=== PATIENT | female | born 1930 | race Caucasian/White ===

== ENCOUNTER 2017-09-05 14:19 | Inpatient (IN) | payer MEDICARE, BC ==
[~2017-09-05] VITALS: Ht 154.9 cm; Wt 59.1 kg
[2017-09-05] MEDS ORDERED: normal saline 1000ml 1,000 ML IV SCH (14:43)
[2017-09-05] MEDS ORDERED: potassium Cl 40MEQ/NS 500ml 500 ML IV PRN ×2 (14:45)
[2017-09-05] MEDS ORDERED: potassium Cl 20 mEq SR tablet PO PRN ×2 (14:45)
[2017-09-05] MEDS ORDERED: mag hydrox/Alum hydrox/simeth 30ml oral suspension PO PRN (14:45)
[2017-09-05] MEDS ORDERED: magnesium 2GM in 50ml NS 50 ML IV PRN (14:45)
[2017-09-05] MEDS ORDERED: HYDROcodone/acetaminophen 10/325mg tab PO PRN (14:45)
[2017-09-05] MEDS ORDERED: HYDROcodone/acetaminophen 5mg/325mg tablet PO PRN (14:45)
[2017-09-05] MEDS ORDERED: magnesium hydroxide 30ml (MOM) UD suspension PO PRN (14:45)
[2017-09-05] MEDS ORDERED: magnesium Cl slow-release 64mg tablet PO PRN (14:45)
[2017-09-05] MEDS ORDERED: acetaminophen 325mg tablet PO PRN ×2 (14:45)
[2017-09-05] MEDS ORDERED: ondansetron/PF 4mg/2ml inj IV PRN (14:45)
[2017-09-05] MEDS ORDERED: magnesium 4gm in 100ml NS 100 ML IV PRN (14:45)
[2017-09-05 16:04] LABS: ALANINE AMINOTRANSFERASE 14 U/L (12-78); ALBUMIN 2.9 G/DL (3.4-5.0); ALBUMIN/GLOBULIN RATIO 0.7 (1.1-1.5); ALKALINE PHOSPHATASE 48 IU/L (46-116); ANION GAP 9 (8-16); ASPARTATE AMINO TRANSFERASE 7 U/L (10-37); BILIRUBIN,TOTAL 0.5 MG/DL (0.1-1.0); BLOOD UREA NITROGEN 22 MG/DL (7-18); BUN/CREATININE RATIO 24.4 (6.6-38.0); CALCIUM 8.5 MG/DL (8.5-10.1); CHLORIDE 118 MMOL/L (99-107); GLUCOSE 104 MG/DL (70-104); MAGNESIUM 2.5 MG/DL (1.5-2.4); PHOSPHORUS 3.5 MG/DL (2.3-4.5); POTASSIUM 3.8 MMOL/L (3.5-5.1); SODIUM 153 MMOL/L (135-145); TOTAL CARBON DIOXIDE 26.4 MMOL/L (24-32); TOTAL PROTEIN 7.2 G/DL (6.4-8.2); eGFR 59 ML/MIN
[2017-09-05 16:23] LABS: BASOPHILS % (AUTO) 0.3 % (0-1); EOSINOPHILS % (AUTO) 0.3 % (0-6); HEMATOCRIT 33.5 % (35.0-45.0); HEMOGLOBIN 11.7 g/dl (12.0-16.0); LYMPHOCYTES # (AUTO) 0.8 X10'3 (1.1-4.8); LYMPHOCYTES % (AUTO) 10.2 % (21-51); MEAN CORPUSCULAR VOLUME 80.1 FL (78-98); MEAN PLATELET VOLUME 8.9 FL (7.4-10.4); MONOCYTES # (AUTO) 0.8 X10'3 (0-0.9); MONOCYTES % (AUTO) 10.8 % (2-12); NEUTROPHILS # (AUTO) 5.8 X10'3 (1.8-7.7); NEUTROPHILS % (AUTO) 78.4 % (42-75); PLATELET COUNT 183 X10'3 (140-440); RED BLOOD COUNT 4.19 X10'6 (4.20-5.60); RED CELL DISTRIBUTION WIDTH 14.4 % (11.5-14.5); WHITE BLOOD COUNT 7.4 X10'3 (4.5-11.0)
[2017-09-05] MEDS: cefTRIAXone 1g/NS 100ml IVPB 100 ML IV SCH (16:26)
[2017-09-05 16:29] LABS: INR 1.1 INR; PARTIAL THROMBOPLASTIN TIME 28 SECONDS (22-32); PROTHROMBIN TIME 11.2 SECONDS (9.0-12.0)
[2017-09-05] MEDS ORDERED: ROBDML PO (16:52)
[2017-09-05] MEDS ORDERED: BISA5TAB10 PO (16:52)
[2017-09-05] MEDS ORDERED: PROP10TA10 PO (16:52)
[2017-09-05] MEDS ORDERED: CETI-102 PO (16:52)
[2017-09-05] MEDS ORDERED: IBUP-1984 PO (16:52)
[2017-09-05] MEDS ORDERED: LORA0.5T PO (16:52)
[2017-09-05] MEDS ORDERED: LOPE2CAP PO (16:52)
[2017-09-05] MEDS ORDERED: AMOX-580 PO (16:52)
[2017-09-05] MEDS ORDERED: BISM-51 PO (16:52)
[2017-09-05] MEDS ORDERED: ACET-1008 PO (16:52)
[2017-09-05] MEDS ORDERED: SENN-161 PO (16:52)
[2017-09-05] MEDS ORDERED: CALC500T11 PO (16:52)
[2017-09-05] MEDS: levoFLOXACIN-Levaquin 250mg/D5 50 ML IV SCH (17:47)
[2017-09-05 20:00] VITALS: BP 116/60
[2017-09-05] MEDS: dextrose 5%-1/2 normal saline 1,000 ML IV SCH (20:24)
[2017-09-05] MEDS ORDERED: LORazepam 0.5 MG tablet PO PRN (20:25)
[2017-09-05] MEDS ORDERED: temazepam 15mg capsule PO PRN (21:00)
[2017-09-05 23:00] VITALS: BP 108/63
[2017-09-06 08:00] VITALS: BP 85/65
[2017-09-06] MEDS: K and/or MAG REPLACEMENT MC SCH (08:00)
[2017-09-06] MEDS: propranolol 10mg tablet PO SCH (08:00)
[2017-09-06 09:00] VITALS: BP 101/51
[2017-09-06] MEDS: cefTRIAXone 1g/NS 100ml IVPB 100 ML IV SCH (09:25)
[2017-09-06 09:30] VITALS: BP 102/57
[2017-09-06] MEDS: cetirizine 10mg tablet PO SCH (09:41)
[2017-09-06] MEDS: enoxaparin 40mg/0.4ml syringe SQ SCH (09:43)
[2017-09-06] MEDS: dextrose 5%-1/2 normal saline 1,000 ML IV SCH ×2 (09:45→21:30)
[2017-09-06] MEDS: levoFLOXACIN-Levaquin 250mg/D5 50 ML IV SCH (10:14)
[2017-09-06 11:00] VITALS: BP 113/59
[2017-09-06 12:06] LABS: BASOPHILS # (AUTO) 0.1 X10'3 (0-0.2); BASOPHILS % (AUTO) 0.8 % (0-1); EOSINOPHILS % (AUTO) 0.4 % (0-6); HEMATOCRIT 32.3 % (35.0-45.0); HEMOGLOBIN 10.9 g/dl (12.0-16.0); LYMPHOCYTES % (AUTO) 14.1 % (21-51); MEAN CORPUSCULAR HEMOGLOBIN 27.1 PG (27.0-31.0); MEAN CORPUSCULAR HGB CONC 33.8 % (33.0-36.5); MEAN CORPUSCULAR VOLUME 80.1 FL (78-98); MEAN PLATELET VOLUME 9.3 FL (7.4-10.4); MONOCYTES # (AUTO) 0.8 X10'3 (0-0.9); MONOCYTES % (AUTO) 11.1 % (2-12); NEUTROPHILS # (AUTO) 5.4 X10'3 (1.8-7.7); NEUTROPHILS % (AUTO) 73.6 % (42-75); PLATELET COUNT 185 X10'3 (140-440); RED BLOOD COUNT 4.03 X10'6 (4.20-5.60); RED CELL DISTRIBUTION WIDTH 14.2 % (11.5-14.5); WHITE BLOOD COUNT 7.4 X10'3 (4.5-11.0)
[2017-09-06 12:21] LABS: ALANINE AMINOTRANSFERASE 9 U/L (12-78); ALBUMIN 2.4 G/DL (3.4-5.0); ALBUMIN/GLOBULIN RATIO 0.6 (1.1-1.5); ALKALINE PHOSPHATASE 40 IU/L (46-116); ANION GAP 6 (8-16); ASPARTATE AMINO TRANSFERASE 9 U/L (10-37); BILIRUBIN,TOTAL 0.3 MG/DL (0.1-1.0); BLOOD UREA NITROGEN 17 MG/DL (7-18); BUN/CREATININE RATIO 21.3 (6.6-38.0); CHLORIDE 119 MMOL/L (99-107); GLUCOSE 129 MG/DL (70-104); POTASSIUM 3.2 MMOL/L (3.5-5.1); SODIUM 150 MMOL/L (135-145); TOTAL CARBON DIOXIDE 25.3 MMOL/L (24-32); TOTAL PROTEIN 6.4 G/DL (6.4-8.2); eGFR 68 ML/MIN
[2017-09-06 20:00] VITALS: BP 112/57
[2017-09-06 23:00] VITALS: BP 103/74
[2017-09-07 06:09] LABS: BASOPHILS % (AUTO) 0.3 % (0-1); EOSINOPHILS # (AUTO) 0.1 X10'3 (0-0.9); EOSINOPHILS % (AUTO) 1.9 % (0-6); HEMATOCRIT 28.8 % (35.0-45.0); HEMOGLOBIN 10.1 g/dl (12.0-16.0); LYMPHOCYTES # (AUTO) 1.2 X10'3 (1.1-4.8); LYMPHOCYTES % (AUTO) 19.9 % (21-51); MEAN CORPUSCULAR HEMOGLOBIN 27.7 PG (27.0-31.0); MEAN CORPUSCULAR HGB CONC 34.9 % (33.0-36.5); MEAN CORPUSCULAR VOLUME 79.2 FL (78-98); MEAN PLATELET VOLUME 8.6 FL (7.4-10.4); MONOCYTES % (AUTO) 16.2 % (2-12); NEUTROPHILS # (AUTO) 3.7 X10'3 (1.8-7.7); NEUTROPHILS % (AUTO) 61.7 % (42-75); PLATELET COUNT 159 X10'3 (140-440); RED BLOOD COUNT 3.64 X10'6 (4.20-5.60); WHITE BLOOD COUNT 6.1 X10'3 (4.5-11.0)
[2017-09-07 06:33] LABS: ALBUMIN 2.2 G/DL (3.4-5.0); ANION GAP 8 (8-16); BLOOD UREA NITROGEN 15 MG/DL (7-18); BUN/CREATININE RATIO 18.8 (6.6-38.0); CALCIUM 7.9 MG/DL (8.5-10.1); CHLORIDE 119 MMOL/L (99-107); GLUCOSE 107 MG/DL (70-104); MAGNESIUM 2.1 MG/DL (1.5-2.4); POTASSIUM 3.6 MMOL/L (3.5-5.1); SODIUM 151 MMOL/L (135-145); TOTAL CARBON DIOXIDE 24.4 MMOL/L (24-32); eGFR 68 ML/MIN
[2017-09-07 07:24] VITALS: BP 116/74
[2017-09-07] MEDS: K and/or MAG REPLACEMENT MC SCH (08:00)
[2017-09-07] MEDS: LACTOBACILLUS RHAMNOSUS GG 15 billion unit sprinkle caps PO SCH (09:31)
[2017-09-07] MEDS: cefTRIAXone 1g/NS 100ml IVPB 100 ML IV SCH (09:32)
[2017-09-07] MEDS: propranolol 10mg tablet PO SCH (09:33)
[2017-09-07] MEDS: cetirizine 10mg tablet PO SCH (09:33)
[2017-09-07] MEDS: enoxaparin 40mg/0.4ml syringe SQ SCH (09:34)
[2017-09-07 11:00] VITALS: BP 119/67
[2017-09-07] MEDS: dextrose 5%-water 1,000 ML IV SCH (11:41)
[2017-09-07] MEDS: levoFLOXACIN 250mg tablet PO SCH (11:42)
[2017-09-07 19:30] VITALS: BP 129/85
[2017-09-08] VITALS: BP 132/80
[2017-09-08] MEDS: dextrose 5%-water 1,000 ML IV SCH ×2 (01:20→08:40)
[2017-09-08 05:51] LABS: BASOPHILS % (AUTO) 0.3 % (0-1); EOSINOPHILS # (AUTO) 0.2 X10'3 (0-0.9); EOSINOPHILS % (AUTO) 2.1 % (0-6); HEMATOCRIT 31.4 % (35.0-45.0); HEMOGLOBIN 10.6 g/dl (12.0-16.0); LYMPHOCYTES # (AUTO) 1.4 X10'3 (1.1-4.8); LYMPHOCYTES % (AUTO) 19.1 % (21-51); MEAN CORPUSCULAR HEMOGLOBIN 27.2 PG (27.0-31.0); MEAN CORPUSCULAR HGB CONC 33.7 % (33.0-36.5); MEAN CORPUSCULAR VOLUME 80.6 FL (78-98); MEAN PLATELET VOLUME 8.5 FL (7.4-10.4); MONOCYTES % (AUTO) 13.7 % (2-12); NEUTROPHILS # (AUTO) 4.6 X10'3 (1.8-7.7); NEUTROPHILS % (AUTO) 64.8 % (42-75); PLATELET COUNT 153 X10'3 (140-440); RED CELL DISTRIBUTION WIDTH 14.9 % (11.5-14.5); WHITE BLOOD COUNT 7.1 X10'3 (4.5-11.0)
[2017-09-08 06:11] LABS: ALBUMIN 2.2 G/DL (3.4-5.0); ANION GAP 9 (8-16); BLOOD UREA NITROGEN 17 MG/DL (7-18); BUN/CREATININE RATIO 21.3 (6.6-38.0); CALCIUM 7.8 MG/DL (8.5-10.1); CHLORIDE 113 MMOL/L (99-107); GLUCOSE 102 MG/DL (70-104); POTASSIUM 3.7 MMOL/L (3.5-5.1); SODIUM 146 MMOL/L (135-145); TOTAL CARBON DIOXIDE 24.5 MMOL/L (24-32); eGFR 68 ML/MIN
[2017-09-08] MEDS: K and/or MAG REPLACEMENT MC SCH (07:18)
[2017-09-08] MEDS: LACTOBACILLUS RHAMNOSUS GG 15 billion unit sprinkle caps PO SCH (07:30)
[2017-09-08] MEDS: propranolol 10mg tablet PO SCH (07:52)
[2017-09-08 08:00] VITALS: BP 94/56
[2017-09-08] MEDS ORDERED: CefTRIAXone/D5W-Rocephin 1gm 50 ML IV SCH (08:01)
[2017-09-08] MEDS: enoxaparin 40mg/0.4ml syringe SQ SCH (08:04)
[2017-09-08] MEDS: cetirizine 10mg tablet PO SCH (08:04)
[2017-09-08] MEDS ORDERED: LEVO250T58 PO (08:46)
[2017-09-08] MEDS: levoFLOXACIN 250mg tablet PO SCH (11:05)
[2017-09-08 11:46] VITALS: BP 109/49
[2017-09-08 11:49] VITALS: BP 92/59
== END 2017-09-08 13:46 | DRG 193 ==
LOC: SUR 3N 14:19
PROVIDERS: ADMIT Family Medicine; ATTEND Family Medicine
DX: J18.9 Pneumonia, unspecified organism (principal); G93.40 Encephalopathy, unspecified; E87.0 Hyperosmolality and hypernatremia; E86.0 Dehydration; F03.90 Unspecified dementia, unspecified severity, without behavioral disturbance, psychotic disturbance, mood disturbance, and anxiety; I10 Essential (primary) hypertension; Z79.899 Other long term (current) drug therapy; Z66 Do not resuscitate
CPT/HCPCS: 36415; 71045; 80048; 80053; 83605; 83735; 84100; 84145; 85025; 85610; 85730; 87040; 87070; 92616; 97110; 97162; 97530; J0696; J1650; J1956; J3480; J7030; J7070

== ENCOUNTER 2017-09-28 21:40 | Emergency (ER) | payer MEDICARE, BC ==
[~2017-09-28] VITALS: Ht 167.6 cm; Wt 60.0 kg
[~2017-09-28 21:40] MED LIST: ACET-1008 PO; BISA5TAB10 PO; BISM-51 PO; CALC500T11 PO; CETI-102 PO; IBUP-1984 PO; LEVO250T58 PO; LOPE2CAP PO; LORA0.5T PO; PROP10TA10 PO; ROBDML PO; SENN-161 PO
[2017-09-28] MEDS ORDERED: normal saline 1000ML IV soln IVB ONE (22:00)
[2017-09-28 22:23] LABS: BASOPHILS % (AUTO) 0 % (0-1); EOSINOPHILS # (AUTO) 0.2 X10'3 (0-0.9); EOSINOPHILS % (AUTO) 1.8 % (0-6); HEMATOCRIT 25.9 % (35.0-45.0); HEMOGLOBIN 8.9 g/dl (12.0-16.0); LYMPHOCYTES # (AUTO) 1.2 X10'3 (1.1-4.8); LYMPHOCYTES % (AUTO) 13.4 % (21-51); MEAN CORPUSCULAR HEMOGLOBIN 27.5 PG (27.0-31.0); MEAN CORPUSCULAR HGB CONC 34.4 % (33.0-36.5); MEAN CORPUSCULAR VOLUME 79.8 FL (78-98); MEAN PLATELET VOLUME 8.7 FL (7.4-10.4); MONOCYTES % (AUTO) 11.5 % (2-12); NEUTROPHILS # (AUTO) 6.5 X10'3 (1.8-7.7); NEUTROPHILS % (AUTO) 73.3 % (42-75); PLATELET COUNT 141 X10'3 (140-440); RED BLOOD COUNT 3.25 X10'6 (4.20-5.60); RED CELL DISTRIBUTION WIDTH 15.5 % (11.5-14.5); WHITE BLOOD COUNT 8.8 X10'3 (4.5-11.0)
[2017-09-28 22:34] LABS: PARTIAL THROMBOPLASTIN TIME 26 SECONDS (22-32); PROTHROMBIN TIME 10.7 SECONDS (9.0-12.0)
[2017-09-28 22:37] LABS: ALANINE AMINOTRANSFERASE 10 U/L (12-78); ALBUMIN 2.8 G/DL (3.4-5.0); ALBUMIN/GLOBULIN RATIO 0.7 (1.1-1.5); ALKALINE PHOSPHATASE 52 IU/L (46-116); ANION GAP 10 (8-16); ASPARTATE AMINO TRANSFERASE 15 U/L (10-37); BILIRUBIN,TOTAL 0.8 MG/DL (0.1-1.0); BLOOD UREA NITROGEN 28 MG/DL (7-18); BUN/CREATININE RATIO 29.2 (6.6-38.0); CALCIUM 8.5 MG/DL (8.5-10.1); CHLORIDE 115 MMOL/L (99-107); CREATININE 0.96 MG/DL (0.40-0.90); GLUCOSE 123 MG/DL (70-104); MAGNESIUM 2.2 MG/DL (1.5-2.4); POTASSIUM 3.6 MMOL/L (3.5-5.1); SODIUM 152 MMOL/L (135-145); TOTAL CARBON DIOXIDE 26.6 MMOL/L (24-32); TOTAL PROTEIN 6.9 G/DL (6.4-8.2); eGFR 55 ML/MIN
[2017-09-28] MEDS ORDERED: apixaban 5mg tablet PO STA (23:13)
[2017-09-28] MEDS ORDERED: APIX5TAB3 PO (23:16)
[2017-09-28 23:36] VITALS: BP 107/59
[2017-09-28] MEDS ORDERED: apixaban 5mg tablet ONE (23:39)
== END 2017-09-29 00:07 | disposition home or self-care (01) ==
LOC: ER 21:40
DX: S80.12XA Contusion of left lower leg, initial encounter (principal); S80.11XA Contusion of right lower leg, initial encounter; I82.411 Acute embolism and thrombosis of right femoral vein; E87.0 Hyperosmolality and hypernatremia; F03.90 Unspecified dementia, unspecified severity, without behavioral disturbance, psychotic disturbance, mood disturbance, and anxiety; I11.0 Hypertensive heart disease with heart failure; I50.9 Heart failure, unspecified; Z79.899 Other long term (current) drug therapy; Z99.3 Dependence on wheelchair; X58.XXXA Exposure to other specified factors, initial encounter; Y93.89 Activity, other specified; Y92.89 Other specified places as the place of occurrence of the external cause; Y99.8 Other external cause status
CPT/HCPCS: 36415; 80053; 83735; 85025; 85610; 85730; 96360; 99284; J7030